=== PATIENT | female | born 1950 | race Caucasian/White ===

== ENCOUNTER 2020-02-27 11:08 | Inpatient (IN) | payer OTHER ==
[~2020-02-27] VITALS: Ht 160 cm; Wt 78.0 kg
--- NOTE | 2020-02-27 11:18 | NUR ---
came in for sharp epigastric pain with nausea and vomiting, also c/o diarrhea. stated "woke up 3 in the morning because of this pain". to ER 7, hooked to gambling monitor, changed to hosp gown, warm blanket provided, diploma pharmacy technician at bedside. Dr Calderon at bedside
[2020-02-27] MEDS ORDERED: MORPHINE SULFATE INJ 2 MG/ML DISP.SYRIN IV ONE ×2 (11:30→13:00)
[2020-02-27] MEDS ORDERED: ONDANSETRON HCL/PF 4 MG/2 ML VIAL IVP ONE (11:30)
[2020-02-27] MEDS ORDERED: ONDANSETRON HCL/PF 4 MG/2 ML VIAL ONE (11:37)
[2020-02-27] MEDS ORDERED: MORPHINE SULFATE INJ 2 MG/ML DISP.SYRIN ONE ×2 (11:38→12:33)
[2020-02-27 11:41] LABS: BASOPHILS # (AUTO) 0.1 /CMM (0.0-0.2); BASOPHILS % (AUTO) 0.6 % (0.0-2.0); EOSINOPHILS % (AUTO) 0.2 % (0.0-6.0); HEMATOCRIT 41 % (33-45); HEMOGLOBIN 13.1 g/dL (11.5-14.8); LYMPHOCYTES # (AUTO) 2.7 /CMM (0.8-4.8); MEAN CORPUSCULAR HGB CONC 32 g/dl (31.0-36.0); MEAN CORPUSCULAR VOLUME 86 fL (82-100); MONOCYTES # (AUTO) 0.5 /CMM (0.1-1.30); MONOCYTES % (AUTO) 2.4 % (2.0-12.0); NEUTROPHILS # (AUTO) 16.3 /CMM (1.8-8.9); NEUTROPHILS % (AUTO) 82.8 % (43.0-81.0); PLATELET COUNT (AUTO) 318 /CMM (150-450); RED BLOOD CELL COUNT(AUTO) 4.75 MIL/uL (4.0-5.2); WHITE BLOOD COUNT (AUTO) 19.7 K/uL (4.3-11.0)
[2020-02-27 11:53] LABS: ALANINE AMINOTRANSFERASE 30 U/L (12-78); ALKALINE PHOSPHATASE 94 U/L (46-116); ASPARTATE AMINOTRANSFERASE 17 U/L (15-37); BILIRUBIN,DIRECT 0.1 mg/dL (0.0-0.2); BILIRUBIN,TOTAL 0.3 mg/dL (0.2-1.0); CALCIUM, SERUM 9.1 mg/dL (8.5-10.1); CARBON DIOXIDE 27 mmol/L (21-32); CHLORIDE 99 mmol/L (98-107); CREATININE 0.9 mg/dL (0.6-1.3); GLUCOSE 225 mg/dL (74-106); LIPASE 80 U/L (73-393); POTASSIUM 4.2 mmol/L (3.5-5.1); SODIUM SERUM 135 mmol/L (136-145); TOTAL PROTEIN, SERUM 7.8 g/dL (6.4-8.2)
--- NOTE | 2020-02-27 12:09 | NUR ---
wheeled out via rney for ct scan
[2020-02-27] MEDS ORDERED: IOHEXOL-300 100 ML VIAL IV ONE (12:16)
[2020-02-27 12:18] LABS: UREA NITROGEN, BLOOD 17 mg/dL (7-18)
--- NOTE | 2020-02-27 12:30 | NUR ---
patient not able to provide urine sample at this time, made aware.
--- NOTE | 2020-02-27 12:35 | NUR ---
patient still on 10/10 ps at mid abdomen, made md aware.
[2020-02-27] MEDS ORDERED: GLIM4TAB37 PO (12:46)
[2020-02-27] MEDS ORDERED: ROSU10TA29 PO (12:46)
[2020-02-27] MEDS ORDERED: POLY15DR40 EACHEYE (12:46)
[2020-02-27] MEDS ORDERED: METF-440 PO (12:46)
[2020-02-27] MEDS ORDERED: LOSA100T31 PO (12:46)
--- NOTE | 2020-02-27 12:59 | NUR ---
urine sample collected and sent to lab
[2020-02-27] MEDS ORDERED: IV NS 0.9% 500 ML BAG IV ONE (13:00)
--- NOTE | 2020-02-27 13:05 | NUR ---
us tech at bedside
--- NOTE | 2020-02-27 13:08 | NUR ---
GAVE MOVESHEET TO ADMITTING FOR INSURANCE AUTH
[2020-02-27 13:13] LABS: APPEARANCE,URINE Clear (CLEAR); BILIRUBIN,URINE Negative (NEGATIVE); BLOOD, URINE Trace-lysed Ery/uL (NEGATIVE); COLOR,URINE Yellow (YELLOW); KETONES,URINE Negative (NEGATIVE); LEUKOCYTE ESTERASE ,URINE Negative (NEGATIVE); NITRITE, URINE Negative (NEGATIVE); PROTEIN,URINE 30 mg/dl (NEGATIVE); UGLUCOSE 250 MG/DL mg/dL (NEGATIVE); UROBILINOGEN,URINE 0.2 EU/dL (0.2)
[2020-02-27 13:14] LABS: BACTERIA,URINE Few /HPF (None Seen); SQUAMOUS EPITHELIAL CELL,UR Few /HPF (None Seen)
[2020-02-27] MEDS ORDERED: METRONIDAZOLE 500MG/ NS 100ML 100 ML IV ONE ×2 (13:28→13:30)
[2020-02-27] MEDS ORDERED: LEVOFLOXACIN 750 MG /D5W 150ML 150 ML IV ONE ×2 (13:28→13:30)
[2020-02-27] MEDS ORDERED: KETOROLAC TROMETHAMINE INJ 30 MG/ML VIAL ONE (13:41)
[2020-02-27] MEDS ORDERED: KETOROLAC TROMETHAMINE INJ 30 MG/ML VIAL IV ONE (14:00)
[2020-02-27] MEDS ORDERED: IV NS 0.9% 1,000 ML BAG IV ONE (14:00)
--- NOTE | 2020-02-27 14:17 | NUR ---
[facility] BED 111-1
--- NOTE | 2020-02-27 14:32 | NUR ---
REPORT GIVEN TO CRISTIAN MERCEDES OF [facility] UNIT
[2020-02-27] MEDS ORDERED: MAG HYDROX/AL HYDROX/SIMETH 30 ML UDC PO PRN (15:00)
[2020-02-27] MEDS ORDERED: ONDANSETRON HCL/PF 4 MG/2 ML VIAL IVP PRN (15:00)
[2020-02-27] MEDS ORDERED: MAGNESIUM HYDROXIDE 30 ML UDC PO PRN (15:00)
[2020-02-27] MEDS ORDERED: DEXTROSE 50%-WATER 50 ML DISP.SYRIN IV PRN (15:00)
[2020-02-27] MEDS ORDERED: ACETAMINOPHEN 325 MG TABLET PO PRN (15:00)
[2020-02-27] MEDS ORDERED: Z GUARD REMEDY 2 OZ OINT TP PRN (15:00)
--- NOTE | 2020-02-27 15:30 | NUR ---
trandferred to [facility] unit by darrel wright
[2020-02-27] MEDS ORDERED: POLYVINYL ALCOHOL 15 ML BOTTLE EACHEYE PRN (16:00)
[2020-02-27] MEDS: METFORMIN 500 MG TABLET PO SCH (17:00)
[2020-02-27] MEDS: GLIMEPIRIDE 4 MG TABLET PO SCH (17:00)
[2020-02-27] MEDS: BLOOD SUGAR DIAGNOSTIC 1 EACH STRIP IN SCH ×2 (17:31→23:55)
[2020-02-27] MEDS ORDERED: IV NS 0.9% 1,000 ML IV STA (18:42)
--- NOTE | 2020-02-27 19:50 | NUR ---
RN OPENING NOTE RECEIVED PT A/O X 3 , NO C/O PAIN, BREATHING EVEN AND UNLABORED. IV 20 GAUGE TO RAC PATENT AND INTACT. NS INFUSING AT 100 ML/HR. SAFETY MEASURES IN PLACE. CALL LIGHT WITHIN REACH WILL CONTINUE TO MONITOR PT.
[2020-02-27 20:00] VITALS: BP 119/62
[2020-02-27] MEDS: METRONIDAZOLE 500MG/ NS 100ML 500 MG in PREMIX 1 EA IV SCH (21:52)
[2020-02-27 22:00] VITALS: BP 119/62
--- NOTE | 2020-02-27 23:30 | NUR ---
RN NOTE REPORT GIVEN TO MANJU MERCEDES, OKAY TO TRANSFER PT
[2020-02-27] MEDS: IV NS 0.9% 1,000 ML IV PRN (23:44)
--- NOTE | 2020-02-27 23:45 | NUR ---
RN NOTES Received patient from KATHI transferred to [facility] via hospital bed accompanied by 2 hospital staff. Patient complaint epigastric pain 06/22. Patient noted able to ambulate to bathroom without assistance needed. On NPO as ordered. With peripheral IV line RAC#20. Resume IN NV @ 100ml/hr as ordered. Administer Morphine for pain as ordered. Kept on bed clean, dry and comfortable. Call light within easy reach. On fall and aspiration precautions. Will continue to monitor accordingly.
[2020-02-27] MEDS: MORPHINE SULFATE INJ 2 MG/ML DISP.SYRIN IV PRN (23:55)
[2020-02-27] MEDS: INSULIN REGULAR, HUMAN 100 UNIT/ML 3 ML VIAL SQ PRN (23:56)
[2020-02-28] MEDS: METRONIDAZOLE 500MG/ NS 100ML 500 MG in PREMIX 1 EA IV SCH ×3 (04:07→20:53)
[2020-02-28] MEDS: BLOOD SUGAR DIAGNOSTIC 1 EACH STRIP IN SCH ×4 (06:09→23:32)
[2020-02-28 06:31] LABS: BASOPHILS % (AUTO) 0.2 % (0.0-2.0); EOSINOPHILS % (AUTO) 0.2 % (0.0-6.0); HEMATOCRIT 33 % (33-45); LYMPHOCYTES # (AUTO) 3.5 /CMM (0.8-4.8); LYMPHOCYTES % (AUTO) 16.8 % (20.0-44.0); MEAN CORPUSCULAR HGB CONC 33 g/dl (31.0-36.0); MEAN CORPUSCULAR VOLUME 85 fL (82-100); MONOCYTES # (AUTO) 1.5 /CMM (0.1-1.30); MONOCYTES % (AUTO) 7.2 % (2.0-12.0); NEUTROPHILS # (AUTO) 15.9 /CMM (1.8-8.9); NEUTROPHILS % (AUTO) 75.6 % (43.0-81.0); PLATELET COUNT (AUTO) 246 /CMM (150-450); RED BLOOD CELL COUNT(AUTO) 3.92 MIL/uL (4.0-5.2)
--- NOTE | 2020-02-28 06:33 | NUR ---
RN CLOSING NOTES Patient asleep, easily awaken. On RA, saturating well. Abdominal pain managed with PRN medications as ordered. All nursing needs attended. Due meds given as ordered. Kept on NPO as ordered. On fall and aspiration precautions. Call light within easy reach. Endorsed.
[2020-02-28 07:00] LABS: CALCIUM, SERUM 7.6 mg/dL (8.5-10.1); CREATININE 0.8 mg/dL (0.6-1.3); MAGNESIUM 1.4 mg/dL (1.8-2.4); PHOSPHORUS 2.7 mg/dL (2.5-4.9); POTASSIUM 3.6 mmol/L (3.5-5.1)
[2020-02-28 07:19] LABS: THYROID STIMULATING HORMONE 3.341 uIU/mL (0.358-3.74)
[2020-02-28] MEDS: METFORMIN 500 MG TABLET PO SCH ×2 (07:24→16:31)
--- NOTE | 2020-02-28 07:24 | NUR ---
rn opening notes Patient received on room air, no sob noted, patient denies pain at this time. A/O x4, NPO at this time. RAC 20 NS @ 100 ml per hour. SARS COV test pending. Bed at the lowest setting, call light within reach, side rails up x2.
--- NOTE | 2020-02-28 07:30 | NUR ---
rn notes glucophage on hold until tomorrow 9 am.
[2020-02-28 08:00] VITALS: BP 133/67
[2020-02-28] MEDS: GLIMEPIRIDE 4 MG TABLET PO SCH ×2 (08:03→16:31)
[2020-02-28] MEDS: PANTOPRAZOLE 40 MG VIAL IV SCH (08:11)
[2020-02-28] MEDS: Magnesium 1GM/D5W 100ML PREMIX 100 ML IV SCH ×2 (08:11→09:06)
[2020-02-28] MEDS ORDERED: ATORVASTATIN 10 MG TABLET PO SCH (09:00)
[2020-02-28 10:00] VITALS: BP 133/67
[2020-02-28 10:01] LABS: ALBUMIN 2.7 g/dL (3.4-5.0); BILIRUBIN,DIRECT 0.1 mg/dL (0.0-0.2); BILIRUBIN,TOTAL 0.4 mg/dL (0.2-1.0); TOTAL PROTEIN, SERUM 5.9 g/dL (6.4-8.2)
[2020-02-28] MEDS: MORPHINE SULFATE INJ 2 MG/ML DISP.SYRIN IV PRN (17:03)
--- NOTE | 2020-02-28 18:30 | NUR ---
rn closing notes patient remains on room air, no sob noted, patient denies pain at this time. NPO at this time, R AC 20 with NS @ 100 ml per hour. Glucophage on hold, to resume tomorrow morning. bed at the lowest setting, call light within reach, side rails up x2. Will give report to NOC RN for SRINIVAS bedside
--- NOTE | 2020-02-28 19:40 | NUR ---
RN NOTES RECEIVED PATIENT AWAKE, ALERT ORIENTED X 4, NO SIGNS OF ACUTE RESPIRATORY DISTRESS, DENIES ANY PAIN AT THIS TIME, NPO MAINTAINED ORDERED, SAFETY MEASURES IN PLACE, CALL LIGHT WITH IN EASY REACH, BED IN LOW LOCKED POSITION. IV ACCESS ON HER RIGHT AC G#20 WITH NS AT 100 ML/HR INFUSING WELL, INTACT AND PATENT. ALL NEEDS ATTENDED, WILL CONTINUE TO MONITOR ACCORDINGLY.
[2020-02-28 20:00] VITALS: BP 124/67
[2020-02-28 20:20] VITALS: BP 124/67
[2020-02-28 21:00] VITALS: BP 124/67
[2020-02-28] MEDS: IV NS 0.9% 1,000 ML IV PRN (21:35)
[2020-02-28 22:50] VITALS: BP 122/68
[2020-02-28] MEDS: INSULIN REGULAR, HUMAN 100 UNIT/ML 3 ML VIAL SQ PRN (23:33)
[2020-02-29] VITALS (8 sets, daily range): BP systolic 126–157; BP diastolic 69–92
[2020-02-29] MEDS: METRONIDAZOLE 500MG/ NS 100ML 500 MG in PREMIX 1 EA IV SCH ×3 (05:09→20:44)
[2020-02-29] MEDS: BLOOD SUGAR DIAGNOSTIC 1 EACH STRIP IN SCH ×4 (06:31→23:24)
--- NOTE | 2020-02-29 06:35 | NUR ---
RN NOTES ALL NEEDS ATTENDED AND MET. ABLE TO REST AND SLEPT AT INTERVALS, NPO MAINTAINED, DUE MEDS GIVEN, SAFETY MEASURES IN PLACE, KEEP CLEAN WARM DRY AND COMFORTABLY. IV ACCESS INTACT AND PATENT. CALL LIGHT WITH IN EASY REACH. WILL ENDORSE TO AM NURSE FOR CONTINUITY OF CARE.
--- NOTE | 2020-02-29 07:53 | NUR ---
RN OPENING NOTE RECEIVED PATIENT IN BED RESTING SLEEPING COMFORTABLY. PATIENT IN NO ACUTE DISTRESS. NO SOB NOTED. PATIENT BREATHING IS EVEN AND UNLABORED. PATIENT BED ALARM IS ON. SAFETY PRECAUTIONS IN PLACE. NPO STATUS MAINTAINED ORDERED. PATIENT BED IS LOCKED AND IN LOWEST POSITION. CALL LIGHT WITHIN REACH. WILL CONTINUE TO MONITOR.
[2020-02-29] MEDS: GLIMEPIRIDE 4 MG TABLET PO SCH ×2 (08:04→17:00)
[2020-02-29] MEDS: METFORMIN 500 MG TABLET PO SCH ×2 (08:04→17:00)
[2020-02-29] MEDS: PANTOPRAZOLE 40 MG VIAL IV SCH (08:10)
[2020-02-29 09:07] LABS: BASOPHILS # (AUTO) 0.1 /CMM (0.0-0.2); BASOPHILS % (AUTO) 0.4 % (0.0-2.0); EOSINOPHILS % (AUTO) 0.5 % (0.0-6.0); HEMATOCRIT 34 % (33-45); HEMOGLOBIN 11.1 g/dL (11.5-14.8); LYMPHOCYTES # (AUTO) 2.8 /CMM (0.8-4.8); LYMPHOCYTES % (AUTO) 13.9 % (20.0-44.0); MEAN CORPUSCULAR HGB CONC 32 g/dl (31.0-36.0); MEAN CORPUSCULAR VOLUME 86 fL (82-100); MONOCYTES # (AUTO) 1.2 /CMM (0.1-1.30); MONOCYTES % (AUTO) 5.7 % (2.0-12.0); NEUTROPHILS # (AUTO) 16.3 /CMM (1.8-8.9); NEUTROPHILS % (AUTO) 79.5 % (43.0-81.0); PLATELET COUNT (AUTO) 222 /CMM (150-450); WHITE BLOOD COUNT (AUTO) 20.4 K/uL (4.3-11.0)
[2020-02-29 09:14] LABS: ALBUMIN 2.4 g/dL (3.4-5.0); BILIRUBIN,TOTAL 0.4 mg/dL (0.2-1.0); CALCIUM, SERUM 7.6 mg/dL (8.5-10.1); CREATININE 0.7 mg/dL (0.6-1.3); MAGNESIUM 2.1 mg/dL (1.8-2.4); PHOSPHORUS 1.8 mg/dL (2.5-4.9); POTASSIUM 3.7 mmol/L (3.5-5.1)
[2020-02-29] MEDS ORDERED: POTASSIUM PHOSPHATE MM 5 MMOL in IV NS 0.9% 100 ML IV SCH (10:00)
[2020-02-29] MEDS: IV NS 0.9% 1,000 ML IV PRN (10:52)
[2020-02-29] MEDS: INSULIN REGULAR, HUMAN 100 UNIT/ML 3 ML VIAL SQ PRN ×2 (11:13→23:49)
--- NOTE | 2020-02-29 11:14 | NUR ---
RN NOTE PATIENT BLOOD SUGAR 134 AT THIS TIME. HELD REGULAR INSULIN 2 UNITS DUE TO PATIENT NPO STATUS.
[2020-02-29] MEDS ORDERED: IV D5/0.45 NACL 1,000 ML IV PRN (12:00)
--- NOTE | 2020-02-29 12:35 | NUR ---
RN NOTE SPOKE WITH SHANNAN LOO. ARIELLE CAMPBELL OBTAIN CONSENT FOR LAPAROSCOPIC CHOLECYSTECTOMY WITH POSSIBLE EXPLORATORY LAPAROTOMY UNDER GENERAL ANESTHESIA. ORDERS TO MAINTAIN NPO STATUS AND ORDER FOR D5 1/2 NS AT 75ML/HR. PATIENT IS ALERT AND ORIENTED X4. PATIENT REFUSES TO SIGN CONSENT FORM FOR BLOOD TRANSFUSION DUE TO PATIENT MORAVIAN BELIEF OF JEHOVAH WITNESS. PATIENT AWARE OF CONSEQUENCES AND I EDUCATED RISKS VS BENEFITS. PATIENT REFUSES BLOOD CONSENT FORM. Addendum: 02/29/20 at 1330 by DAVID CR RN RN NOTE SPOKE WITH SHANNAN LOO. ARIELLE CAMPBELL OBTAIN CONSENT FOR LAPAROSCOPIC CHOLECYSTECTOMY WITH POSSIBLE EXPLORATORY LAPAROTOMY UNDER GENERAL ANESTHESIA. ORDERS TO MAINTAIN NPO STATUS AND ORDER FOR D5 1/2 NS AT 75ML/HR. PATIENT IS ALERT AND ORIENTED X4. PATIENT REFUSES TO SIGN CONSENT FORM FOR BLOOD TRANSFUSION DUE TO PATIENT MORAVIAN BELIEF OF JEHOVAH WITNESS. PATIENT AWARE OF CONSEQUENCES AND I EDUCATED RISKS VS BENEFITS. PATIENT SIGNED BLOOD TRANSFUSION REFUSAL FORM.
[2020-02-29] MEDS: LEVOFLOXACIN 750 MG /D5W 150ML 750 MG in PREMIX 1 EA IV SCH (14:22)
[2020-02-29] MEDS ORDERED: MIDAZOLAM HCL 2 MG/2ML VIAL ONE (14:59)
[2020-02-29] MEDS ORDERED: FENTANYL PF 250MCG/5ML AMPUL ONE (14:59)
[2020-02-29] MEDS ORDERED: LIDOCAINE 1% INJ 50 ML MDV IJ ONE (15:21)
[2020-02-29] MEDS ORDERED: BUPIVACAINE MPF 0.5% W/EPI INJ 30 ML VIAL ONE (15:21)
[2020-02-29] MEDS ORDERED: CELLULOSE,OXIDIZED 1 EA PACK MC ONE (16:43)
[2020-02-29] MEDS ORDERED: Sodium Phosphate 15 MMOL in IV NS 0.9% 245 ML IV SCH (17:00)
--- NOTE | 2020-02-29 17:54 | NUR ---
MS MERCEDES NOTE HELD GLUCOPHAGE AND AMARYL 1700 DOSE DUE TO PATIENT CURRENTLY STILL IN SURGERY FOR CHOLECYSTECTOMY. Addendum: 02/29/20 at 1755 by DAVID CR RN MS MERCEDES NOTE HELD GLUCOPHAGE AND AMARYL 1700 DOSE DUE TO PATIENT CURRENTLY STILL IN SURGERY FOR CHOLECYSTECTOMY AND STILL CURRENT ON NPO STATUS.
--- NOTE | 2020-02-29 18:04 | NUR ---
MS RN NOTE PATIENT ARRIVED FROM OR. PATIENT IN NO ACUTE DISTRESS. NO SOB NOTED. PATIENT BREATHING IS EVEN AND UNLABORED. PATIENT VITAL SIGNS WNL. PATIENT BLOOD SUGAR IS 142. HELD REGULAR INSULIN 2 UNITS DUE TO PATIENT NOT HAVE EATEN ANYTHING AT THIS TIME AND ONLY ON ICE CHIPS AND TO ADVANCE TOLERATED.
--- NOTE | 2020-02-29 18:29 | NUR ---
MS RN NOTE SPOKE WITH JUAN JOSÉ FROM PHARMACY AND PER JUAN JOSÉ WILL NOT START ZOSYN FROM POST OP ORDERS DUE TO ALLERGY TO AMOXICILLIN AND SMALL CHANCE OF REACTION TO MEDICATION. JUAN JOSÉ STATED HE SPOKE WITH DR. [place] AND PER IT IS OKAY NOT TO START ZOSYN DUE TO POSSIBLE REACTION. OKAY TO KEEP ON CURRENT ANTIBIOTICS.
[2020-02-29] MEDS: HYDROMORPHONE 1 MG/1 ML DISP.SYRIN IV PRN ×3 (18:46→23:47)
[2020-02-29] MEDS: IV LR 1000 ML 1,000 ML IV PRN (18:47)
[2020-02-29] MEDS ORDERED: ONDANSETRON HCL/PF 4 MG/2 ML VIAL IV PRN (19:00)
--- NOTE | 2020-02-29 19:00 | NUR ---
RECEIVED ALERT AND AWAKE STATES SHE IS NOT IN PAIN ABD ROUND FAINT BS VIA AUSCULTATION 3 SITES NOTED IV INFUSING COOPERATIVE WHEN ASKED TO TAKE DEEP BREATHS AND MOVE LEGS CALL LIGHT EXPLAINED TO PATIENT AND MADE AWARE TO CALL FOR ASSIST TO GET OOB
--- NOTE | 2020-02-29 19:24 | NUR ---
RN CLOSING NOTE PATIENT IN BED RESTING COMFORTABLY. PATIENT IN NO ACUTE DISTRESS. NO SOB NOTED. PATIENT BREATHING IS EVEN AND UNLABORED. PATIENT BED ALARM IS ON. PATIENT VITAL SIGNS WNL. SAFETY PRECAUTIONS IN PLACE. PATIENT SITE OF INCISION DRESSINGS CLEAN, DRY, AND INTACT. PATIENT NEEDS AND CONCERNS ADDRESSED. PATIENT KEPT CLEAN, DRY AND COMFORTABLE THROUGHOUT SHIFT. PATIENT BED IS LOCKED AND IN LOWEST POSITION. CALL LIGHT WITHIN REACH. WILL ENDORSE CARE TO PM SHIFT FOR SRINIVAS.
[2020-03-01] MEDS: HYDROMORPHONE 1 MG/1 ML DISP.SYRIN IV PRN (03:52)
[2020-03-01] MEDS: METRONIDAZOLE 500MG/ NS 100ML 500 MG in PREMIX 1 EA IV SCH ×3 (04:29→20:51)
--- NOTE | 2020-03-01 05:19 | NUR ---
MEDICATED X3 FOR SURGICAL SITE PAIN. AND EFFECTIVE. GOOD ABOUT DEEP BREATHING AND GETTING OOB X3 TO USE THE BATHROOM MINIMAL ASSIST. TOLERATING CLEAR LIQUIDS ASPIRATION PRECAUTIONS. AFEBRILE THIS 12 HOURS
[2020-03-01] MEDS: IV LR 1000 ML 1,000 ML IV PRN (05:43)
[2020-03-01] MEDS: BLOOD SUGAR DIAGNOSTIC 1 EACH STRIP IN SCH ×4 (05:47→23:27)
[2020-03-01 06:53] LABS: BASOPHILS % (AUTO) 0.2 % (0.0-2.0); EOSINOPHILS % (AUTO) 0.2 % (0.0-6.0); HEMATOCRIT 31 % (33-45); HEMOGLOBIN 10.2 g/dL (11.5-14.8); LYMPHOCYTES # (AUTO) 2.6 /CMM (0.8-4.8); LYMPHOCYTES % (AUTO) 14.5 % (20.0-44.0); MEAN CORPUSCULAR HGB CONC 33 g/dl (31.0-36.0); MEAN CORPUSCULAR VOLUME 85 fL (82-100); MONOCYTES # (AUTO) 1.2 /CMM (0.1-1.30); MONOCYTES % (AUTO) 7.1 % (2.0-12.0); NEUTROPHILS # (AUTO) 13.8 /CMM (1.8-8.9); PLATELET COUNT (AUTO) 234 /CMM (150-450); RED BLOOD CELL COUNT(AUTO) 3.65 MIL/uL (4.0-5.2); WHITE BLOOD COUNT (AUTO) 17.6 K/uL (4.3-11.0)
[2020-03-01 07:07] LABS: CALCIUM, SERUM 7.2 mg/dL (8.5-10.1); CREATININE 0.5 mg/dL (0.6-1.3); MAGNESIUM 1.9 mg/dL (1.8-2.4); PHOSPHORUS 1.9 mg/dL (2.5-4.9); POTASSIUM 3.8 mmol/L (3.5-5.1)
[2020-03-01 07:27] LABS: THYROID STIMULATING HORMONE 5.118 uIU/mL (0.358-3.74)
--- NOTE | 2020-03-01 07:41 | NUR ---
RN OPENING NOTE RECEIVED PATIENT IN BED RESTING SLEEPING COMFORTABLY. PATIENT IN NO ACUTE DISTRESS. NO SOB NOTED. NO FACIAL GRIMACING NOTED. PATIENT BREATHING IS EVEN AND UNLABORED. SURGICAL DRESSINGS DRY AND INTACT, NO BLEEDING NOTED. PATIENT BED ALARM IS ON. SAFETY PRECAUTIONS IN PLACE. PATIENT BED IS LOCKED AND IN LOWEST POSITION. CALL LIGHT WITHIN REACH. WILL CONTINUE TO MONITOR.
[2020-03-01 08:00] VITALS: BP 144/80
[2020-03-01] MEDS: GLIMEPIRIDE 4 MG TABLET PO SCH ×2 (08:26→16:03)
[2020-03-01] MEDS: PANTOPRAZOLE 40 MG TABLET.DR PO SCH (08:26)
[2020-03-01] MEDS: METFORMIN 500 MG TABLET PO SCH ×2 (08:26→16:03)
[2020-03-01] MEDS: NEUTRA PHOS 1 POWD.PACKET PO SCH ×2 (08:27→16:03)
[2020-03-01 10:00] VITALS: BP 144/80
[2020-03-01] MEDS: INSULIN REGULAR, HUMAN 100 UNIT/ML 3 ML VIAL SQ PRN (12:24)
[2020-03-01] MEDS: HYDROCODONE/APAP 10/325MG 1 EA TABLET PO PRN ×3 (12:29→23:27)
--- NOTE | 2020-03-01 12:43 | NUR ---
RN NOTE PATIENT HAD ONE BOWEL MOVEMENT AT THIS TIME. PATIENT FORGOT TO ALERT ME WHEN HAVING A BOWEL MOVEMENT IN TOILET AND FLUSHED. UNABLE TO GRAB STOOL SAMPLE FOR FECAL OCCULT BLOOD TESTING AT THIS TIME. WILL CONTINUE TO MONITOR.
[2020-03-01] MEDS: SOD FERRIC GLUC 125 MG in IV NS 0.9% 100 ML IV SCH (14:16)
[2020-03-01 16:00] VITALS: BP 144/74
--- NOTE | 2020-03-01 17:24 | NUR ---
RN NOTE PATIENT BLOOD SUGAR 118 AT THIS TIME. NO INSULIN COVERAGE GIVEN PER PROTOCOL.
--- NOTE | 2020-03-01 17:30 | NUR ---
MS RN NOTE SPOKE WITH SHANNAN LOO, UPDATING HER ON PATIENT CONDITION. PATIENT VITAL SIGNS WNL. INFORMED HER OF PATIENT TOLERATING CLEAR LIQUIDS WELL, ADVANCED DIET TO SOFT DIET. PER SHANNAN THAT IS OKAY.
[2020-03-01] MEDS ORDERED: K PHOS NEUTRAL 250 MG TABLET PO ONE (18:00)
--- NOTE | 2020-03-01 19:04 | NUR ---
RN CLOSING NOTE PATIENT IN BED RESTING COMFORTABLY. PATIENT IN NO ACUTE DISTRESS. NO SOB NOTED. PATIENT BREATHING IS EVEN AND UNLABORED. PATIENT BED ALARM IS ON. PATIENT VITAL SIGNS WNL. PATIENT STATES 4/10 ABDOMINAL PAIN AND IS TOLERABLE AT THIS TIME. PATIENT STATES THAT SHE TOLERATED SOFT DIET DINNER WELL.SAFETY PRECAUTIONS IN PLACE. PATIENT SITE OF INCISION DRESSINGS CLEAN, DRY, AND INTACT. PATIENT WITH ONLY ONE BOWEL MOVEMENT TODAY, AND PASSING GAS. WILL ENDORSE TO HOT BOX SPOTTER TO COLLECT STOOL SAMPLE FOR FECAL OCCULT BLOOD STOOL TEST WHEN NEXT BOWEL MOVEMENT OCCURS. PATIENT NEEDS AND CONCERNS ADDRESSED. PATIENT KEPT CLEAN, DRY AND COMFORTABLE THROUGHOUT SHIFT. PATIENT BED IS LOCKED AND IN LOWEST POSITION. CALL LIGHT WITHIN REACH. WILL ENDORSE CARE TO PM SHIFT FOR SRINIVAS.
--- NOTE | 2020-03-01 19:50 | NUR ---
MS RN NOTE: PATIENT RESTING IN BED, NO ACUTE DISTRESS NOTED. BREATHING EVEN AND UNLABORED, NO SOB NOTED. IV TO LEFT WRIST IN PLACE. [address], NO BLEEDING NOTED. BED LOCKED AND IN LOWEST POSITION, CALL LIGHT IN REACH. WILL CONTINUE TO MONITOR.
[2020-03-01 20:30] VITALS: BP 140/71
--- NOTE | 2020-03-01 23:30 | NUR ---
MS RN NOTE: PATIENT BLOOD SUGAR LEVEL 128MG/DL, NO INSULIN PER SLIDING SCALE. NO S/S OF HYPER/HYPOGLYCEMIA NOTED. PATIENT COMPLAIN OF PAIN TO ABDOMEN 05/22, NORCO 10/325MG 1 TAB ORAL GIVEN PER MD. WILL CONTINUE TO MONITOR.
[2020-03-02] MEDS: METRONIDAZOLE 500MG/ NS 100ML 500 MG in PREMIX 1 EA IV SCH (05:11)
[2020-03-02] MEDS: BLOOD SUGAR DIAGNOSTIC 1 EACH STRIP IN SCH ×4 (05:12→23:46)
--- NOTE | 2020-03-02 06:20 | NUR ---
MS RN NOTE: PATIENT RESTING IN BED, NO ACUTE DISTRESS NOTED. BREATHING EVEN AND UNLABORED, NO SOB NOTED. IV TO LEFT WRIST IN PLACE. [address], NO BLEEDING NOTED. PATIENT BLOOD SUGAR LEVEL 106MG/DL, NO INSULIN COVERAGE NEEDED PER SLIDING SCALE. NO S/S OF HYPOGLYCEMIA NOTED. BED LOCKED AND IN LOWEST POSITION, CALL LIGHT IN REACH. WILL ENDORSE TO DAY NURSE TO CONTINUE WITH PLAN OF CARE.
[2020-03-02 06:35] LABS: BASOPHILS % (AUTO) 0.2 % (0.0-2.0); EOSINOPHILS % (AUTO) 1.5 % (0.0-6.0); HEMATOCRIT 32 % (33-45); HEMOGLOBIN 10.3 g/dL (11.5-14.8); LYMPHOCYTES # (AUTO) 2.9 /CMM (0.8-4.8); LYMPHOCYTES % (AUTO) 21.6 % (20.0-44.0); MEAN CORPUSCULAR HGB CONC 33 g/dl (31.0-36.0); MEAN CORPUSCULAR VOLUME 85 fL (82-100); MONOCYTES % (AUTO) 7.2 % (2.0-12.0); NEUTROPHILS # (AUTO) 9.3 /CMM (1.8-8.9); NEUTROPHILS % (AUTO) 69.5 % (43.0-81.0); PLATELET COUNT (AUTO) 277 /CMM (150-450); WHITE BLOOD COUNT (AUTO) 13.4 K/uL (4.3-11.0)
[2020-03-02 06:50] LABS: CALCIUM, SERUM 8.1 mg/dL (8.5-10.1); CREATININE 0.8 mg/dL (0.6-1.3); PHOSPHORUS 2.9 mg/dL (2.5-4.9); POTASSIUM 3.7 mmol/L (3.5-5.1)
--- NOTE | 2020-03-02 07:33 | NUR ---
rn opening notes patient received on room air, no sob noted, patient denies pain at this time. 3 abdominal dressing remains present. soft diet, L wrist 20. Negative for COVID as of 02/27/2020. stool OB pending, PT eval to determine DC planning. Bed at the lowest setting, call light within reach, side rails up x2.
[2020-03-02 08:00] VITALS: BP 133/70
[2020-03-02] MEDS: METFORMIN 500 MG TABLET PO SCH ×2 (08:02→16:06)
[2020-03-02] MEDS: GLIMEPIRIDE 4 MG TABLET PO SCH ×2 (08:02→16:06)
[2020-03-02] MEDS: PANTOPRAZOLE 40 MG TABLET.DR PO SCH (08:02)
[2020-03-02 09:07] LABS: IMMUNOGLOBULIN A, SERUM 145 mg/dL (87-352); IMMUNOGLOBULIN G, SERUM 650 mg/dL (586-1602); IMMUNOGLOBULIN M, SERUM 35 mg/dL (26-217)
[2020-03-02] MEDS: INSULIN REGULAR, HUMAN 100 UNIT/ML 3 ML VIAL SQ PRN (11:54)
[2020-03-02] MEDS ORDERED: SIMETHICONE 80 MG TAB.CHEW PO PRN (12:00)
[2020-03-02] MEDS: METRONIDAZOLE 500 MG TABLET PO SCH ×2 (12:10→20:28)
[2020-03-02] MEDS: HYDROCODONE/APAP 10/325MG 1 EA TABLET PO PRN ×2 (12:15→20:33)
[2020-03-02] MEDS: SOD FERRIC GLUC 125 MG in IV NS 0.9% 100 ML IV SCH (13:48)
[2020-03-02] MEDS ORDERED: LEVOFLOXACIN (750 MG) 750 MG TABLET PO SCH (14:00)
[2020-03-02] MEDS: LEVOFLOXACIN 750 MG /D5W 150ML 750 MG in PREMIX 1 EA IV SCH (14:59)
--- NOTE | 2020-03-02 18:34 | NUR ---
RN CLOSING NOTES Patient remains on room air, no sob noted, patient states that she only has shoulder pain at this time. Patient's vital sign stable and states that she no pain or discomfort from her surgical site. L wrist 20 gauge, insulin coverage given. Patient could not provide stool at this time, did well on her PT. Plan is to DC her tomorrow. Bed at the lowest setting, call light within reach, side rails up x2. Will give report to NOC RN for SRINIVAS bedside.
--- NOTE | 2020-03-02 19:15 | NUR ---
RN medsurg opening notes Received Pt from morning nurse. Pt is alert and orientedX4. Pt is resting in bed comfortably. Respiration is normal in 2 L NC. No SOB. No S/S of distress noted. IV sites at L wrist# 20 is clean, intact, patent and SL.Three mid abd ABD mepilex CDI dressing are clean, intact and dry. Safety precautions is maintained. Bed at low position, brakes locked, side rails upX2 and call light is within reach. Will continue to monitor.
[2020-03-02 20:00] VITALS: BP 153/66
[2020-03-02 20:57] VITALS: BP 153/66
[2020-03-02 22:30] VITALS: BP 119/55
--- NOTE | 2020-03-02 23:43 | NUR ---
vinegar maker notes Pt's blood sugar level 114. No insulin per sliding scale. No S/S of hyperglycemia or hypoglycemia noted. Will continue to monitor. Addendum: 03/03/20 at 0334 by SWETA CABALLERO RN MAGO avila notes not tele
[2020-03-03] MEDS: HYDROCODONE/APAP 10/325MG 1 EA TABLET PO PRN (03:23)
[2020-03-03 04:06] LABS: *SPE A/G RATIO 0.8 (0.7-1.7); *SPE ALBUMIN 2.4 g/dL (2.9-4.4); *SPE ALPHA-1-GLOBULIN 0.6 g/dL (0.0-0.4); *SPE BETA GLOBULIN 0.8 g/dL (0.7-1.3); *SPE M-SPIKE Not Observed g/dL (Not Observed); *SPEGAMMA GLOBULIN 0.7 g/dL (0.4-1.8)
[2020-03-03 04:47] LABS: OCCULT BLOOD STOOL NEGATIVE (NEGATIVE)
[2020-03-03] MEDS: METRONIDAZOLE 500 MG TABLET PO SCH ×2 (05:06→12:05)
[2020-03-03] MEDS: BLOOD SUGAR DIAGNOSTIC 1 EACH STRIP IN SCH ×2 (05:26→11:29)
[2020-03-03] MEDS: INSULIN REGULAR, HUMAN 100 UNIT/ML 3 ML VIAL SQ PRN ×2 (05:28→12:20)
--- NOTE | 2020-03-03 05:29 | NUR ---
RN medsurg notes Pt blood sugar level 154. Pt refused insulin to be given. Made aware risks and benefits. Pt keep refusing. Pt stated "I don't take insulin. insulin make my blood sugar to low." Will continue to monitor.
--- NOTE | 2020-03-03 07:08 | NUR ---
RN medsurg closing notes Pt is alert and orientedX4. Pt is resting in bed comfortably. Respiration is normal in 2 L NC. No SOB. No S/S of distress noted. VS is stable. IV sites at L wrist# 20 is clean, intact, patent and SL. Routine meds were given as ordered. Kept Pt clean, dry and comfortable. Safety precautions is maintained. Bed at low position, brakes locked, side rails upX2 and call light is within reach. Will endorse to morning nurse for SRINIVAS. Addendum: 03/03/20 at 0713 by SWETA CABALLERO RN Three mid abd ABD mepilex CDI dressing are clean, intact and dry.
--- NOTE | 2020-03-03 07:15 | NUR ---
M/S RN NOTES PATIENT AWAKE IN BED, NO RESPIRATORY DISTRESS, NO C/O PAIN AT THIS TIME. SKIN WARM TO TOUCH, IV ACCESS SITE INTACT AND PATENT. PATIENT'S NEEDS ATTENDED, BED ON LOWEST LOCKED POSITION, CALL LIGHT WITHIN REACH. WILL CONTINUE TO MONITOR.
[2020-03-03 08:00] VITALS: BP 139/74
[2020-03-03] MEDS: METFORMIN 500 MG TABLET PO SCH ×2 (08:23→16:57)
[2020-03-03] MEDS: PANTOPRAZOLE 40 MG TABLET.DR PO SCH (08:23)
[2020-03-03] MEDS: GLIMEPIRIDE 4 MG TABLET PO SCH ×2 (08:23→16:57)
[2020-03-03 08:26] LABS: BASOPHILS % (AUTO) 0.4 % (0.0-2.0); HEMATOCRIT 32 % (33-45); HEMOGLOBIN 10.6 g/dL (11.5-14.8); LYMPHOCYTES # (AUTO) 1.4 /CMM (0.8-4.8); MEAN CORPUSCULAR HGB CONC 34 g/dl (31.0-36.0); MEAN CORPUSCULAR VOLUME 84 fL (82-100); MONOCYTES # (AUTO) 0.8 /CMM (0.1-1.30); MONOCYTES % (AUTO) 9.1 % (2.0-12.0); NEUTROPHILS # (AUTO) 6.4 /CMM (1.8-8.9); NEUTROPHILS % (AUTO) 73.5 % (43.0-81.0); PLATELET COUNT (AUTO) 293 /CMM (150-450); RED BLOOD CELL COUNT(AUTO) 3.75 MIL/uL (4.0-5.2); WHITE BLOOD COUNT (AUTO) 8.7 K/uL (4.3-11.0)
[2020-03-03 08:46] LABS: CALCIUM, SERUM 7.8 mg/dL (8.5-10.1); CREATININE 0.6 mg/dL (0.6-1.3); MAGNESIUM 1.8 mg/dL (1.8-2.4); PHOSPHORUS 2.5 mg/dL (2.5-4.9)
[2020-03-03] MEDS ORDERED: LOSARTAN POTASSIUM 50 MG TABLET PO SCH (10:00)
[2020-03-03 10:01] VITALS: BP 139/74
[2020-03-03] MEDS: POTASSIUM CHLORIDE 20 MEQ TAB.PRT.SR PO SCH ×3 (10:01→12:05)
[2020-03-03] MEDS: SOD FERRIC GLUC 125 MG in IV NS 0.9% 100 ML IV SCH (14:31)
--- NOTE | 2020-03-03 17:26 | NUR ---
M/S RN NOTES PATIENT DISCHARGED IN STABLE CONDITION, NO RESPIRATORY DISTRESS, NO C/O PAIN AT THIS TIME. PATIENT GIVEN DISCHARGE INSTRUCTIONS, VERBALIZED INSTRUCTIONS, GAVE PRESCRIPTIONS TO PATIENT. BELONGINGS ACCOUNTED FOR AND BELONGINGS LIST SIGNED. SKIN WARM TO TOUCH, SKIN ASSESSED NO SKIN BREAKDOWN, ABDOMINAL INCISION SITES WITH DRESSING C/D/I. IV REMOVED AND APPLIED PRESSURE DRESSING. PATIENT'S NEEDS ATTENDED. PATIENT ESCORTED TO LOBBY VIA WHEELCHAIR, LEFT WITH SISTER VIA PRIVATE CAR.
== END 2020-03-03 17:45 | disposition home or self-care (01) | DRG 854 ==
LOC: ER 11:08 → MEDSG1 15:19 → MEDSG2 23:26
PROVIDERS: ADMIT Registered Nurse
PROC: 0FT44ZZ Resection of Gallbladder, Percutaneous Endoscopic Approach (ICD-10-PCS; principal; 2020-02-29)
DX: A41.9 Sepsis, unspecified organism (principal); E87.2 Acidosis; K80.01 Calculus of gallbladder with acute cholecystitis with obstruction; R65.20 Severe sepsis without septic shock; Z68.30 Body mass index [BMI] 30.0-30.9, adult; E66.9 Obesity, unspecified; E83.42 Hypomagnesemia; I10 Essential (primary) hypertension; K76.0 Fatty (change of) liver, not elsewhere classified; E11.65 Type 2 diabetes mellitus with hyperglycemia; K82.A1 Gangrene of gallbladder in cholecystitis; E88.09 Other disorders of plasma-protein metabolism, not elsewhere classified; D50.9 Iron deficiency anemia, unspecified; R59.0 Localized enlarged lymph nodes; Z79.84 Long term (current) use of oral hypoglycemic drugs; R93.5 Abnormal findings on diagnostic imaging of other abdominal regions, including retroperitoneum
CPT/HCPCS: 36415; 71045-TC; 76705-TC; 76856-TC; 78226; 80048-TC; 80053-TC; 80061-TC; 80076-TC; 81000-TC; 82272-TC; 82728-TC; 82784; 82962-TC; 83540-TC; 83605-TC; 83690-TC; 83735-TC; 83880; 84100-TC; 84155; 84165; 84439-TC; 84443-TC; 84484-TC; 85025-TC; 85610-TC; 85730-TC; 86304; 86334; 86850-TC; 87040-TC; 87081-TC; 87086-TC; 93307-TC; 97116-TC; 97530-TC; A4216; A9537; A9563; C9113; G0378; J1170; J1815; J1885; J1956; J2250; J2270; J2405; J2916; J3010; J3475; J3490; J7030; J7040; J7050; J7120; Q9967